=== PATIENT | female | born 1950 | race Caucasian/White ===

== ENCOUNTER 2020-02-29 16:54 | Emergency (ER) | payer BC, SELFPAY ==
[2020-02-29 17:11] VITALS: BP 151/79; PULSE 66; RESP 16; TEMP 36.2; O2SAT 98
--- NOTE | 2020-02-29 17:34 | ED.SKABFB ---
HPI - Skin/Abscess/Foreign Bdy General Chief complaint: Skin/Abscess/Foreign Body Stated complaint: rash Time Seen by Provider: 02/29/20 17:20 Source: patient Mode of arrival: ambulatory Limitations: no limitations History of Present Illness HPI narrative: Daksha Cummins is a 69 yo female with a PMH of HTN who comes to express care with a rash on left arm across forehead and in the back of the right occipital area. Is been present for a few days and various areas as noted by scabbing, states it has spread somewhat on her left arm and that is why she came to be seen. States the rash is pruritic, scabbed in a places where she has scratched. Is used no medication just washed the rash with soap and water. Related Data Home Medications Medication Instructions Recorded Confirmed fluoxetine 60 mg PO DAILY 02/29/20 02/29/20 lisinopril-hydrochlorothiazide 1 tablet PO DAILY 02/29/20 02/29/20 Allergies Allergy/AdvReac Type Severity Reaction Status Date / Time No Known Allergies Allergy Verified 02/29/20 17:16 Review of Systems Review of Systems: Narrative: CONSTITUTIONAL: Denies fever, chills, sweats. EYES: Denies visual changes, redness, discharge. ENT: Denies rhinorrhea, congestion, sore throat, otalgia. CARDIOVASCULAR: Denies chest pain, palpitations, edema. RESPIRATORY: Denies dyspnea, wheezing, cough GASTROINTESTINAL: Denies abdominal pain, nausea, vomiting, diarrhea. GENITOURINARY: Denies dysuria, hematuria, abnormal discharge SKIN: Pruritic rash on left arm and across forehead, circular rash back of neck NEUROLOGIC: Denies numbness, or focal weakness. PSYCHIATRIC: Denies anxiety or depression. [facility] Past Medical History Medical History HTN (hypertension) Family History Family History Other Hypertension Social History Social History (Updated 02/29/20 @ 17:49 by Amy Michael CNP) Smoking status: Never smoker Alcohol intake: current Comments At time of signature, I agree with nursing past medical, surgical, social and family history. There is no relevant family history pertinent to the presenting complaint. Exam Narrative: Exam Narrative: GENERAL: This is a well-nourished, well-developed patient, in mild distress. HEAD: normocephalic, atraumatic. EYES: Sclera clear/white. Vision is grossly intact. EARS: External ears normal, . Hearing grossly intact. NOSE: External nose normal without nasal discharge, nares without redness, no rhinorrhea. THROAT: Mucous membranes moist, NECK: Neck supple, r CARDIOVASCULAR: Regular rate and rhythm without murmurs, gallops, or rubs. RESPIRATORY: Clear to auscultation. Breath sounds equal bilaterally. No wheezes, rales, or rhonchi. GASTROINTESTINAL: Abdomen soft, non-tender, SKIN: warm, intact with pruritic papular rash with scabs on left arm , pruritic papular rash on forehead left and right , circular rash on right side back of neck and hairline . NEURO: awake, alert, and oriented to person, place and time. There were no obvious focal neurologic abnormalities. Steady gait EXTREMITIES: Normal range of motion. BACK: Nontender without deformity Course Course Emergency Course: Came to express care for rash Hairline appears different than rash on left arm Lotrimin ointment to neck and lesions at hairline, Benadryl lotion to left arm. Started on Medrol Dosepak Follow-up with primary care physician on Monday Vital Signs Vital signs: Vital Signs Temperature 97.2 F L 02/29/20 17:11 Pulse Rate 66 02/29/20 17:11 Respiratory Rate 16 02/29/20 17:11 Blood Pressure 151/79 H 02/29/20 17:11 Pulse Oximetry 98 02/29/20 17:11 Temperature 97.2 F L 02/29/20 17:11 Pulse Rate 66 02/29/20 17:11 Respiratory Rate 16 02/29/20 17:11 Blood Pressure 151/79 H 02/29/20 17:11 Pulse Oximetry 98 02/29/20 17:11 MDM - Skin/Abscess/Foreig
== END 2020-02-29 18:03 | disposition home or self-care (01) ==
PROVIDERS: Emergency Provider Nurse Practitioner
DX: R21 Rash and other nonspecific skin eruption (principal); I10 Essential (primary) hypertension
CPT/HCPCS: 99213; G0463

== ENCOUNTER 2021-03-16 13:39 | Emergency (ER) | payer BC, SELFPAY ==
[2021-03-16 13:43] VITALS: BP 126/66; PULSE 87; RESP 16; TEMP 37; O2SAT 100
[2021-03-16 13:51] VITALS: BP 126/66; PULSE 87; RESP 16; TEMP 37; O2SAT 100
--- NOTE | 2021-03-16 14:14 | ED.WOUNDLAC ---
HPI - Wound/Laceration General Chief Complaint: Wound/Laceration Stated Complaint: lip injury Source: patient and RN notes reviewed Mode of arrival: ambulatory History of Present Illness HPI narrative: This is a 70-year-old woman who presented to urgent care with a laceration to her upper lip and forehead area. According to patient she was on her way to hair appointment and stopped her foot on her face. Patient denies blacking out she does have a laceration to her inner upper lip and forehead bruising to the bridge of her nose. Patient has a history of multiple fractures to her nose. She denies any airway obstruction, or nosebleed. Patient does not complain of headaches she does not have altered mental status. The patient denies SOB, CP, palpitation, extremity numbness, lightheadedness, dizziness, constipation, diarrhea, chills, or fever. Related Data Home Medications Medication Instructions Recorded Confirmed fluoxetine 60 mg PO DAILY 02/29/20 02/29/20 lisinopril-hydrochlorothiazide 1 tablet PO DAILY 02/29/20 02/29/20 alprazolam 03/16/21 aspirin 03/16/21 bupropion HCl mg PO 03/16/21 gabapentin 03/16/21 oxycodone 03/16/21 zolpidem 03/16/21 Allergies Allergy/AdvReac Type Severity Reaction Status Date / Time No Known Allergies Allergy Verified 02/29/20 17:16 Review of Systems Review of Systems: A 14 organ system Review of Systems was performed and pertinent positives included in the HPI, otherwise remaining ROS is negative. [facility] Past Medical History Medical History HTN (hypertension) Family History Family History Other Hypertension Social History Social History Smoking status: Never smoker Alcohol intake: current Exam Narrative: GENERAL: This is a well-nourished, well-developed patient, in no apparent distress. HEAD: normocephalic, atraumatic. Laceration to the upper inner and outer lip EYES: PERRL. Sclera clear/white. Vision is grossly intact. 1 inch laceration to the inner forehead near eyebrows, abrasion to bridge of nose EARS: External ears normal, auditory canals clear and without drainage, TMs normal without perforation. Hearing grossly intact. NOSE: External nose normal with no obvious nasal discharge, nares without redness, no rhinorrhea. THROAT: Mucous membranes moist, posterior pharynx clear. NECK: Neck supple, non-tender without lymphadenopathy, masses or thyromegaly. CARDIOVASCULAR: Regular rate and rhythm without murmurs, gallops, or rubs. RESPIRATORY: Clear to auscultation. Breath sounds equal bilaterally. No wheezes, rales, or rhonchi. GASTROINTESTINAL: Abdomen soft, non-tender, nondistended. Bowel sounds are active. No hepato-splenomegaly, or palpable masses. No guarding. SKIN: warm, intact with no suspicious lesions or rash, good texture and turgor. NEURO: awake, alert, and oriented to person, place and time. There were no obvious focal neurologic abnormalities. Steady gait EXTREMITIES: Normal range of motion. No edema. No calf tenderness. Negative Homans sign bilaterally. BACK: Nontender without deformity or crepitance. No flank tenderness. Course Course Emergency Course: Steri-Strips to the forehead, 5 sutures to the upper and inner lip 1 suture above lip Vital Signs Vital signs: Vital Signs Temperature 98.6 F 03/16/21 13:43 Pulse Rate 87 03/16/21 13:43 Respiratory Rate 16 03/16/21 13:43 Blood Pressure 126/66 03/16/21 13:43 Pulse Oximetry 100 03/16/21 13:43 Temperature 98.6 F 03/16/21 13:51 Pulse Rate 87 03/16/21 13:51 Respiratory Rate 16 03/16/21 13:51 Blood Pressure 126/66 03/16/21 13:51 Pulse Oximetry 100 03/16/21 13:51 Procedures Laceration Laceration 1: Date: 03/16/21 Time: 14:59 Site: lip (inner and outer) Side (If appli
== END 2021-03-16 15:06 | disposition home or self-care (01) ==
PROVIDERS: Emergency Provider Nurse Practitioner
DX: S01.511A Laceration without foreign body of lip, initial encounter (principal); S01.81XA Laceration without foreign body of other part of head, initial encounter; W01.0XXA Fall on same level from slipping, tripping and stumbling without subsequent striking against object, initial encounter; I10 Essential (primary) hypertension
CPT/HCPCS: 12011; 99213; G0463